=== PATIENT | male | born 1985 | race Caucasian/White ===

== ENCOUNTER 2016-05-03 09:39 | Emergency (ER) | payer OTHER ==
[2016-05-03 09:44] VITALS: BP 145/83; PULSE 79; TEMP 98.6; BMI 34.9
--- NOTE | 2016-05-03 09:44 | PDOC ---
History of Present Illness - General Chief Complaint: Cold Symptoms Stated Complaint: COLD/COUGH X 1 WEEK Time Seen by Provider: 05/03/16 09:43 History Source: Patient Exam Limitations: No Limitations - History of Present Illness Initial Comments: 31 yo M no PMH presents with 1 week history of upper respiratory symptoms. He had a cough, congestion, and ear pressure. Sensation of fullness in the ear. Denies fever. He states that his symptoms are improving, but that his ear is still bothering him. His significant other is in the department with similar symptoms. Past History - Past Medical History Allergies/Adverse Reactions: Allergies Allergy/AdvReac Type Severity Reaction Status Date / Time No Known Drug Allergies Allergy Verified 05/03/16 09:40 Home Medications: Ambulatory Orders No Home Medications 0 dose .ROUTE UTDICT 04/26/13 Other medical history: PT DENIES - Psycho/Social/Smoking Cessation Hx Anxiety: No Suicidal Ideation: No Smoking History: Never smoked Information on smoking cessation initiated: No Hx Alcohol Use: No Substance Use Type: None Review of Systems - Review of Systems Able to Perform ROS?: Yes Comments:: GENERAL/CONSTITUTIONAL: No fever or chills. No weakness. HEAD, EYES, EARS, NOSE AND THROAT: No change in vision. No ear pain or discharge. No sore throat. CARDIOVASCULAR: No chest pain or shortness of breath. RESPIRATORY: +Cough. No wheezing or hemoptysis. GASTROINTESTINAL: No nausea, vomiting, diarrhea or constipation. GENITOURINARY: No dysuria, frequency, or change in urination. MUSCULOSKELETAL: No joint or muscle swelling or pain. No neck or back pain. SKIN: No rash NEUROLOGIC: No headache, vertigo, loss of consciousness, or change in strength/ sensation. ENDOCRINE: No increased thirst. No abnormal weight change. HEMATOLOGIC/LYMPHATIC: No anemia, easy bleeding, or history of blood clots. ALLERGIC/IMMUNOLOGIC: No hives or skin allergy. *Physical Exam - Physical Exam Comments: GENERAL: Awake, alert, and fully oriented, in no acute distress HEAD: No signs of trauma EYES: PERRLA, EOMI, sclera anicteric, conjunctiva clear ENT: Auricles normal inspection, hearing grossly normal, nares patent, oropharynx clear without exudates. Moist mucosa. TMs intact with trace erythema B/L. No effusion. NECK: Normal ROM, supple, no lymphadenopathy, JVD, or masses LUNGS: Breath sounds equal, clear to auscultation bilaterally. No wheezes, and no crackles HEART: Regular rate and rhythm, normal S1 and S2, no murmurs, rubs or gallops ABDOMEN: Soft, nontender, normoactive bowel sounds. No guarding, no rebound. No masses EXTREMITIES: Normal range of motion, no edema. No clubbing or cyanosis. No cords, erythema, or tenderness NEUROLOGICAL: Cranial nerves II through XII grossly intact. Normal speech, normal gait SKIN: Warm, Dry, normal turgor, no rashes or lesions noted. *DC/Admit/Observation/Transfer Diagnosis at time of Disposition: Viral respiratory illness - Discharge Dispostion Disposition: HOME Condition at time of disposition: Stable Admit: No - Patient Instructions Printed Discharge Instructions: DI for Viral Upper Respiratory Infection -- Adult
== END 2016-05-03 11:19 | disposition home or self-care (01) ==
LOC: FER 09:39
DX: B34.9 Viral infection, unspecified (principal)
CPT/HCPCS: 99281-25

== ENCOUNTER 2022-04-09 14:13 | Emergency (ER) | payer OTHER ==
[2022-04-09 14:30] VITALS: BP 139/90; PULSE 85; RESP 16; TEMP 99.5; BMI 26.2
== END 2022-04-09 14:45 | disposition home or self-care (01) ==
LOC: FER 14:13
DX: L60.0 Ingrowing nail (principal)
CPT/HCPCS: 99283-25